=== PATIENT | female | born 1995 | race Caucasian/White ===

== ENCOUNTER 2018-01-15 17:25 | Emergency (ER) | payer BC ==
[~2018-01-15] VITALS: Ht 165.1 cm; Wt 69.0 kg
[2018-01-15] MEDS ORDERED: XANAX 0.5 MG0.5 MG PO (17:29)
[2018-01-15] MEDS ORDERED: MOBIC7.5 MG PO (19:10)
[2018-01-15 19:48] VITALS: BP 136/53
== END 2018-01-15 19:49 | disposition home or self-care (01) ==
LOC: ER 17:25
DX: S90.01XA Contusion of right ankle, initial encounter (principal); W20.8XXA Other cause of strike by thrown, projected or falling object, initial encounter; Y92.89 Other specified places as the place of occurrence of the external cause; Y93.89 Activity, other specified; Y99.8 Other external cause status